=== PATIENT | male | born 1955 | race Caucasian/White ===

== ENCOUNTER 2025-06-26 10:19 | Emergency (ER) | payer MEDICARE, BC ==
[~2025-06-26] VITALS: Ht 167.6 cm; Wt 97.5 kg
[2025-06-26 10:41] VITALS: BP 156/86; PULSE 83; RESP 16; TEMP 98.4; O2SAT 98
--- NOTE | 2025-06-26 10:57 | Physician Documentation ---
History of Present Illness ~ Chief Complaint: Groin Pain Stated Complaint: L GROIN PAIN Time Seen by MD: 10:54 HPI This is a 70-year-old male who reports to the emergency department for evaluation of left side groin pain at the inguinal crease. Patient reports that he has been experiencing a sharp burning pain while walking times multiple days. He denies any scrotal swelling, scrotal pain, penile pain, or pain to the perineum at this time. Patient reports that he had a hernia in 1982 and 1984 on each side. Medication Reconciliation Allergies: Coded Allergies: No Known Allergies (Unverified , 06/26/25) Review of Systems ROS As stated above in the HPI, otherwise all systems are reviewed and negative. Physical Exam Vital Signs: Temperature: 98.4, Source: Oral, Heart Rate: 83, Respiratory Rate: 16, BP: 156/86, Pulse Oximetry: 98, Weight: 97.450 Oxygen Flow Rate: 0 Physical Exam Scribed for Juana Clark [employer] Machine [employer] by JEFFERY Valenzuela . 06/26/25 13:39 Progress Results/Orders Results/Orders Orders - JUANA CLARK Ultrasound Pelvis W/Orwo Dplx (06/26/25 11:54) Completed Orders - JUANA CLARK DELIVERY AGENT Ultrasound Pelvis W/Orwo Dplx (06/26/25 11:54) Vital Signs 06/26/25 10:41 Temp 98.4 Pulse 83 Resp 16 B/P (MAP) 156/86 Pulse Ox 98 O2 Flow Rate 0 Medical Decision Making Findings The patient is suffering from left groin pain, but based on the history, exam, and work up, I do not suspect that the patient has testicular torsion, abscess, severe cellulitis, Fourniers gangrene, orchitis, epididymitis, inguinal hernia or other emergent cause. Inguinal hernia was ruled out at this time via ultrasound. Patient will follow up with his primary care provider. Patient will return to the emergency department if he has any worsening of his current symptoms or any additional concerning symptoms that we discussed here in the emergency department today. Patient expresses clear understanding of discharge instructions and the plan. Urinary Diff Dx:Considerations: Include: AAA, Aortic dissection, Appendicitis, Appendicitis train, Bowel obstruction, Bladder outlet obstruc., Cholelithiasis, Choleangitis, Cholecystitis, DJD, Epididymitis, Hepatitis, HNP, Impaction, Musculoskeletal pain, Pancreatitis, Postoperative Comp., Prostatitis, Pyelonephritis, Renal failure, Renal infarction, Strain, Urolithiasis, Urinary Obstruction, Urethritis, Urinary retention, UTI, Other Genital Diff Dx:Considerations: Include: Abscess, Balanitis, Balanoposthitis, Cellulitis, Epididymitis, Entrapment injury, Carlos's gangrene, Foreign body, Facture penis, Hydrocele, Inguinal hernia, Post-op Complication, Paraphimosis, Prostatitis, Priapism, Syphilis, Testicular torsion, Torsion-epididymis, Torsi on-appendiceal, Urinary retention, Urethritis, Urethritis-chlamydial, Urethritis-gonococcal, UTI, Other Departure Impression: Primary Impression: Groin pain Additional Impression: Strain of groin Condition: Stable Discharge Instructions: Strain, Muscle Additional Instructions: The patient is suffering from left groin pain, but based on the history, exam, a nd work up, I do not suspect that the patient has testicular torsion, abscess, severe cellulitis, Fourniers gangrene, orchitis, epididymitis, inguinal hernia or other emergent cause. Inguinal hernia was ruled out at this time via ultrasound. It is possible that you are suffering from a strain of a groin muscle this may take several days to weeks to fully heal. Pain worsens or you become concerned please return to the emergency department or your primary care provider. Patient will follow up with his primary care provider. Patient will return to the emergency department if he has any worsening of his current symptoms or any additional concerning symptoms that we discussed here in the emergency department today. Patient expresses clear understanding of discharge instructions and the plan. Referrals: NO PRIMARY CARE PROVIDER (PCP) Education Educated: Patient Educated regarding: treatment, need for follow up Signature Scribe Signature: A Attestation: Scribed for Juana Clark by JEFFERY Valenzuela . 06/26/25 13:48 JUANA CLARK Jun 26, 2025 10:57
--- NOTE | 2025-06-26 12:58 | RADIOLOGY REPORT ---
Exam: US ULTRASOUND PELVIS W/ORWO DPLX Date: 06/26/2025 12:16 PM Clinical History: pain at the inguinal fold, pubis, hx of hernia x 2 Comparison: None Technique: Targeted sonographic evaluation of the soft tissues of the left groin was obtained utilizing grayscal e and color Doppler imaging. Findings: There is no evidence for drainable collection. There is no evidence for solid or cystic mass in the site. No vascular abnormalities identified at this site. IMPRESSION: No definite sonographic abnormality is identified in the soft tissues of the left groin
== END 2025-06-26 13:54 | disposition home or self-care (01) ==
LOC: ER 10:19
DX: S39.011A Strain of muscle, fascia and tendon of abdomen, initial encounter (principal); X58.XXXA Exposure to other specified factors, initial encounter; Y93.01 Activity, walking, marching and hiking; Y92.89 Other specified places as the place of occurrence of the external cause; Y99.8 Other external cause status
CPT/HCPCS: 76857; 99284

== ENCOUNTER 2025-07-17 16:46 | Emergency (ER) | payer MEDICARE, BC ==
[~2025-07-17] VITALS: Ht 167.6 cm; Wt 215.0 kg
[2025-07-17 17:28] VITALS: BP 186/98; PULSE 107; RESP 18; TEMP 97.8; O2SAT 97
== END 2025-07-18 00:53 | disposition left against medical advice (07) ==
LOC: ER 16:47
DX: R10.32 Left lower quadrant pain (principal); Z53.21 Procedure and treatment not carried out due to patient leaving prior to being seen by health care provider

== ENCOUNTER 2025-07-18 07:26 | Emergency (ER) | payer MEDICARE, BC ==
[~2025-07-18] VITALS: Ht 167.6 cm; Wt 97.7 kg
[2025-07-18 07:32] VITALS: BP 147/83; PULSE 79; RESP 19; TEMP 97.9; O2SAT 99
--- NOTE | 2025-07-18 07:43 | Physician Documentation ---
History of Present Illness ~ Chief Complaint: Groin Pain Stated Complaint: POSS HERNIA Time Seen by MD: 07:37 HPI This is a 70-year-old gentleman with a known left inguinal hernia, currently in the process of being referred to Dr. Corbett for surgery, however Dr. Corbett as out on vacation, presents for evaluation of worsening left lower quadrant abdominal pain similar to prior hernia pain, but now radiates to his navel. No particular palliating or aggravating factors. Did not attempt to treat it. Pain is mild to moderate in its intensity. Denies any fever, chills, nausea, vomiting, diarrhea, chest pain, shortness a breath. No concern for tobacco, alcohol or illicit substances use Medication Reconciliation Allergies: Coded Allergies: No Known Allergies (Unverified , 07/17/25) Review of Systems ROS 10 point review of systems was performed and unless noted above in HPI is negative for acute process/complaint. Physical Exam Vital Signs: Temperature: 97.9, Source: Temporal, Heart Rate: 79, Respiratory Rate: 19, BP: 147/83, Pulse Oximetry: 99, Weight: 97.730 Oxygen Flow Rate: 0 Physical Exam GENERAL: Awake, alert, oriented, GCS 15, no apparent distress, non-toxic appearing, answers questions, follows commands appropriately. HEENT: Atraumatic, normocephalic, pupils equal, extraocular muscles intact, sclerae anicteric, mucus membranes moist, oropharynx is clear, no stridor. NECK: supple, full active range of motion, trachea midline, no thyromegaly, no lymphadenopathy, no JVD. CARDIOVASCULAR: regular rate/rhythm, no murmurs/gallops/rubs, Pulses are 2+ in all extremities and symmetric. Capillary refill less than 2 seconds. PULMONARY: Nonlabored, good air movement ,no respiratory distress, speaking in full sentences, clear to auscultation bilaterally, no wheezing, no ronchi, no rales, no accessory muscle use. GASTROINTESTINAL: Soft, non-tender, non-distended, normal active bowel sounds, n o organomegaly, no pulsatile masses, no CVA tenderness. NEUROLOGIC: Lucid with normal mental status. Normal facial symmetry. Moves all extremities symmetrically and with purpose. No truncal ataxia. Speech is fluid without evidence of dysarthria or aphasia, no focal deficits appreciated. MUSCULOSKELETAL: There is full range of motion of all extremities. There is no joint pain or joint swelling or joint erythema. There is no muscle pain or tenderness or swelling. EXTREMITIES: warm, well-perfused, no cyanosis, no clubbing, no edema, no acute deformities. Skin: warm, dry, no rashes or lesions, no jaundice, no petechiae orpurpura. No ecchymosis. PSYCHIATRIC: Normal affect, normal insight, normal concentration. Focused exam: [] Progress Results/Orders Results/Orders Orders - LEONEL ALEJANDRA DO Cbc/Diff (07/18/25 07:37) Urinalysis, Cult If Indicated (07/18/25 07:37) MG (07/18/25 07:37) Ct Abdomen Pelvis (07/18/25 07:37) Hs Troponin I W Calculations (07/18/25 07:37) CMP (07/18/25 07:37) Lacticsepsis (07/18/25 07:37) Vital Signs 07/18/25 07:32 Temp 97.9 Pulse 79 Resp 19 B/P (MAP) 147/83 Pulse Ox 99 O2 Flow Rate 0 Medical Decision Making Findings Facility Status: ED Holds, RME process The plan was discussed with the patient, who demonstrates clear understanding of the plan and is in agreement with the plan unless otherwise noted in the chart. All questions have been answered, all concerns were addressed unless otherwise documented. I was available throughout their ED stay for frequent reassessment and questions. Differential Diagnoses (considered and possible or likely): [Differential diagnosis considered includes acute appendicitis, acute cholecystitis, pancreatitis, gastritis, PUD, diverticulitis, mesenteric ischemia, abdominal aortic aneurysm, bowel obstruction, enteritis, colitis, fecal impaction, volvulus, IBS, inflammatory bowel disease, specific food intolerance, peritonitis, perforated viscous, malignancy, UTI, abscess, and abdominal pain NOS. History, physical exam, and workup exclude many of the more serious causes listed above. ] ??Differential Diagnoses (considered and unlikely, not requiring evaluation currently): [See above] MDM Data Please see [facility] for the following: Independent Historians and external Records Review. Historian: [Patient] Independent Historians: ?[Record review] Medication Management: [Reviewed medication list] Social History and determinants: [Reviewed] Please see the body of the note for the following: Any independent interpretations of ECG, imaging studies. All vitals signs/haemodynamics, ordered tests were independently reviewed and interpreted by myself. Nursing triage complaint and vitals reviewed, additional nursing notes were reviewed as available and I agree unless otherwise noted or documented in contradiction in the chart Vital Signs: Independently reviewed Labs: Independently interpreted Imaging: Independently interpreted Old Medical Records: Independently reviewed, see HPI for relevant summary and information Pulse Oximetry: [96%] interpreted as [normal on room air] by me Additionally notably showing: [Hemodynamically stable] Tests considered but not ordered include: [I did order blood work on CT, however the gentleman form this that he will be leaving and will call [facility] to initiate his workup there a cause his moving to [facility] three weeks.] Social Determinants of Health Impact: Patient was evaluated in [facility] [place] to healthcare due to below par ratio of patient to medical providers. [] Comorbid Conditions Impacting Present Evaluation and Care/Treatment: [Known left inguinal hernia] Management Discussions with other Healthcare Providers: [None] Treatment and Disposition Medication Management (Given or considered): [Pain management]. See EMR for details Consideration for Hospitalization/Escalation/Deescalation of Care: Admission for observation has been considered, [however the patient is able to tolerate p.o., their symptoms are controlled, they are able to rely on oral medications, and their chief complaint/diagnosis can be managed on outpatient basis.] ?ED Course:?[The gentleman decided leave against medical advice. He left before completion of workup.] ?Shared decision making:?[] Code status:?FULL Please see the full Electronic Medical Record for full details of nursing documentation, medications list, other records of complete past medical history and conditions, vital signs, laboratory studies, and any radiologic study interpretations by radiologists. Portions of this note were completed using [employer] dictation software and as a result there may exist minor errors in spelling. I have reviewed elements of past family and social history and agree as included in note. Departure Disposition: LEFT AGAINST MEDICAL ADVICE Impression: Primary Impression: Left inguinal hernia Additional Impressions: Left groin pain Periumbilical pain Condition: Stable Referrals: NO PRIMARY CARE PROVIDER (PCP) Education Educated: Patient Educated regarding: diagnosis, treatment, prognosis, need for follow up Signature Scribe Signature: No scribe Attestation: This note accurately reflects clinical decisions, work performed by myself, Leonel Alejandra, LEONEL RAMIREZ DO Jul 18, 2025 07:43
== END 2025-07-18 07:46 | disposition left against medical advice (07) ==
LOC: ER 07:26
DX: K40.90 Unilateral inguinal hernia, without obstruction or gangrene, not specified as recurrent (principal); R10.33 Periumbilical pain
CPT/HCPCS: 99282